=== PATIENT | female | born 1985 | race Caucasian/White ===

== ENCOUNTER 2019-08-11 21:31 | Inpatient (IN) | payer MEDICAID ==
[2019-08-12] MEDS ORDERED: CARBOPROST 250 MCG INJ IM (01:00)
[2019-08-12] MEDS ORDERED: MISOPROSTOL 200 MCG TAB PR ×2 (01:00→15:30)
[2019-08-12] MEDS ORDERED: OXYTOCIN 30 UNITS/LR 500 ML IV ×3 (01:00→21:52)
[2019-08-12] MEDS: LACTATED RINGER'S 1,000 ML IV ×5 (01:31→23:19)
[2019-08-12] MEDS: CITRIC ACID/NA CITRATE 30 ML CUP PO (14:10)
[2019-08-12] MEDS ORDERED: METOCLOPRAMIDE 10 MG INJ (14:20)
[2019-08-12] MEDS ORDERED: morphine SULFATE/PF (10 MG/10 ML) INJ (14:20)
[2019-08-12] MEDS ORDERED: KETOROLAC 30 MG INJ (14:21)
[2019-08-12] MEDS ORDERED: morphine 2 MG INJ IV ×5 (15:30)
[2019-08-12] MEDS ORDERED: ONDANSETRON 4 MG INJ IV (15:30)
[2019-08-12] MEDS ORDERED: KETOROLAC 30 MG INJ IV (15:30)
[2019-08-12] MEDS ORDERED: DIPHENHYDRAMINE 50 MG INJ IV ×2 (15:30)
[2019-08-12] MEDS ORDERED: NALOXONE (0.4 MG/ML) INJ IV (15:30)
[2019-08-12] MEDS ORDERED: NA PHOSPHATE/BIPHOS 133 ML ENEMA PR (15:30)
[2019-08-12] MEDS: METHYLERGONOVINE 0.2 MG INJ IM (16:49)
[2019-08-12] MEDS: OXYTOCIN 30 UNITS/LR 500 ML IV ×2 (17:00→18:33)
[2019-08-12] MEDS: morphine 2 MG INJ IV (17:01)
[2019-08-12] MEDS: CEFAZOLIN 2 GM/50 ML (PMX) 50 ML IVPB (17:43)
[2019-08-12] MEDS: LANOLIN HPA 1 PKT TOP (19:46)
[2019-08-12] MEDS: ONDANSETRON 4 MG INJ IV (19:46)
[2019-08-12] MEDS: SENNA/DOCUSATE NA (8.6MG/50MG) TAB PO (21:38)
[2019-08-12] MEDS: KETOROLAC 30 MG INJ IV (23:24)
[2019-08-13] MEDS: KETOROLAC 30 MG INJ IV ×2 (05:30→10:48)
[2019-08-13] MEDS: SENNA/DOCUSATE NA (8.6MG/50MG) TAB PO ×2 (10:07→23:27)
[2019-08-13] MEDS: LACTATED RINGER'S 1,000 ML IV ×2 (11:12→16:40)
[2019-08-13] MEDS ORDERED: OXYCODONE/ACETAMINOPHEN (5/325) TAB PO (15:30)
[2019-08-13] MEDS: IBUPROFEN 600 MG TAB PO ×2 (17:21→23:27)
[2019-08-13] MEDS: OXYCODONE/ACETAMINOPHEN (5/325) TAB PO (17:27)
[2019-08-14] MEDS: OXYCODONE/ACETAMINOPHEN (5/325) TAB PO ×2 (04:06→15:21)
[2019-08-14] MEDS: IBUPROFEN 600 MG TAB PO ×4 (06:02→23:44)
[2019-08-14] MEDS: SENNA/DOCUSATE NA (8.6MG/50MG) TAB PO ×2 (08:25→20:57)
[2019-08-15] MEDS: IBUPROFEN 600 MG TAB PO ×2 (05:34→11:31)
[2019-08-15] MEDS: SENNA/DOCUSATE NA (8.6MG/50MG) TAB PO (09:07)
[2019-08-15] MEDS: OXYCODONE/ACETAMINOPHEN (5/325) TAB PO ×2 (09:07→13:41)
[2019-08-15] MEDS: DIPHTH/TET/ACEL PERTUSS (ADULT) 0.5 ML VIAL IM* (09:09)
[2019-08-15] MEDS: MEASLES,MUMPS,RUBELLA VACCINE INJ SC* (09:09)
== END 2019-08-15 15:00 | disposition home or self-care (01) | DRG 788 ==
LOC: OBT 21:31 → L-D 21:33 → PP1 08-12 18:30
PROC: 10D00Z1 Extraction of Products of Conception, Low, Open Approach (ICD-10-PCS; principal; 2019-08-12 13:45)
PROC: 10907ZC Drainage of Amniotic Fluid, Therapeutic from Products of Conception, Via Natural or Artificial Opening (ICD-10-PCS; 2019-08-12 13:45)
DX: O24.429 Gestational diabetes mellitus in childbirth, unspecified control (principal); Z3A.38 38 weeks gestation of pregnancy; Z37.0 Single live birth
CPT/HCPCS: 76818; 80053; 81001; 82962; 84112; 84560; 85025; 85384; 85610; 85730; 86592; 86850; 86900; 86901